=== PATIENT | male | born 1965 ===

== ENCOUNTER 2017-04-14 17:31 | Emergency (ER) | payer MEDICAID ==
[2017-04-14 17:32] VITALS: BMI 28.1
[2017-04-14 17:49] VITALS: RESP 16; TEMP 98.5
--- NOTE | 2017-04-14 18:13 | ED PDOC ---
Lower Extremity Pain/Injury Time Seen by Provider: 04/14/17 17:56 Chief Complaint (Nursing): Lower Extremity Problem/Injury Chief Complaint (Provider): Left knee pain History Per: Patient History/Exam Limitations: no limitations Onset/Duration Of Symptoms: Days (x4 days) Current Symptoms Are (Timing): Still Present Additional Complaint(s): 51 year old male with a past medical history of arthritis who presents to the emergency department for an evaluation of the left knee x4 days. Reports pain has been worsening since onset and associated with diffuse swelling. Patient had total knee replacement completed last year by Dr. Joya in [facility]. Reports he has been resting using both ice and warm packs with nonsteroidal anti-inflammatory drugs (NSAIDs) with minimal relief. Denies trauma , injury, fever, chills, numbness, or weakness. Of note, patient worked his first shift at his job a week ago since having the surgery to the left knee a year ago and is required to be on his feet for 10 hours. He noticed swelling to be similar to the swelling he had prior to having the surgery. Surgery was done due to severe arthritis of the left knee. PMD: [facility] (Simon Larios) Past Medical History Reviewed: Historical Data, Nursing Documentation, Vital Signs Vital Signs: Last Vital Signs Temp 98.5 F 04/14/17 17:46 Pulse 102 H 04/14/17 17:46 Resp 16 04/14/17 17:46 BP 125/80 04/14/17 17:46 Pulse Ox 99 04/14/17 17:46 - Medical History PMH: Arthritis - Surgical History Other surgeries: left knee prosthesis - Family History Family History: States: Diabetes Other Family History: Cardiac disease - Social History Current smoker - smoking cessation education provided: No Alcohol: None Drugs: Denies - Immunization History Hx Tetanus Toxoid Vaccination: No Hx Influenza Vaccination: No Hx Pneumococcal Vaccination: No - Home Medications Home Medications: Ambulatory Orders Medication Instructions Recorded Ibuprofen [Motrin Tab] 800 mg PO QID #20 tab 04/10/17 Lidocaine 5% [Lidoderm] 1 ea TD DAILY PRN #20 patch 04/14/17 traMADol [Ultram] 50 mg PO TID PRN #15 tab 04/14/17 - Allergies Allergies/Adverse Reactions: Allergies Allergy/AdvReac Type Severity Reaction Status Date / Time No Known Allergies Allergy Verified 04/14/17 17:46 Review of Systems ROS Statement: Except As Marked, All Systems Reviewed And Found Negative (As per HPI) Constitutional: Negative for: Fever, Chills, Other (Trauma or injury) Musculoskeletal: Positive for: Other (Left knee pain with swelling) Neurological: Negative for: Weakness, Numbness Physical Exam - Reviewed Nursing Documentation Reviewed: Yes Vital Signs Reviewed: Yes - Physical Exam Appears: Positive for: Non-toxic, In Acute Distress Head Exam: Positive for: ATRAUMATIC, NORMOCEPHALIC Skin: Positive for: Warm, Dry Extremity: Positive for: Other (LEFT knee: diffuse fluctuant edema, no deformity , no laxity, KE/KF 5/5 strength, neurovascularly intact distally) Lymphatic: Negative for: Adenopathy Neurologic/Psych: Positive for: Alert. Negative for: Motor/Sensory Deficits - ECG O2 Sat by Pulse Oximetry: 99 (RA) Pulse Ox Interpretation: Normal Medical Decision Making Medical Decision Making: Time: 1803 Initial impression: Knee effusion differential include knee sprain, arthritis, and fracture Initial plan: --Left knee x-ray --Reevaluation Time: 1836 --Left knee x-ray FINDINGS: BONES: There is no acute displaced fracture or bone destruction. Bone alignment is normal. JOINTS: Status post total cemented knee arthroplasty. No evidence of loosening or hardware complications. JOINT EFFUSION: There is a moderate suprapatellar joint effusion. OTHER FINDINGS: None. IMPRESSION: No acute displaced fracture or dislocation. Moderate suprapatellar joint effusion. Time: 0 Upon provider reevaluation patient is medically stable, and requires no further treatment in the ED at this time. Patient will be discharged home with Rx for Lidocaine 5% and Tramadol 50 mg. Counseling was provided and all questions were answered regarding diagnosis and need for follow up with Dr. Familia Odonnell MD. There is agreement to discharge plan. Return if symptoms persist or worsen. Clinical Impression: Knee effusion and knee pain Scribe Attestation: Documented by Stacia Trammell, acting as a scribe for Leah Powell MD. Provider Scribe Attestation: All medical record entries made by the Scribe were at my direction and personally dictated by me. I have reviewed the chart and agree that the record accurately reflects my personal performance of the history, physical exam, medical decision making, and the department course for this patient. I have also personally directed, reviewed, and agree with the discharge instructions and disposition. Disposition - Clinical Impression Clinical Impression: Knee effusion, Knee pain - Patient ED Disposition Is Patient to be Admitted: No - Disposition Referrals: Familia Odonnell MD [Staff Provider] - 04/15/17 (CALL TOMORROW MORNING TO SETUP URGENT APPOINTMENT WITH WHOEVER IS AVAILABLE AT [facility]. PLEASE TRY TO FOLLOW UP BY THE END OF THE WEEK.) Disposition: Routine/Home Disposition Time: 19:00 Condition: STABLE Additional Instructions: USE CRUTCHES AND KNEE IMMOBILIZER UNTIL YOU SEE THE ORTHOPEDIST. DO NOT BEAR ANY WEIGHT ON THE KNEE. CONTINUE TO ICE KNEE AND TAKE ALLEVE. Prescriptions: Lidocaine 5% [Lidoderm] 1 ea TD DAILY PRN #20 patch PRN Reason: PAIN traMADol [Ultram] 50 mg PO TID PRN #15 tab PRN Reason: SEVERE PAIN ONLY Instructions: Crutch Instructions (ED), Swollen Knee Joint (ED), Knee Immobilizer (ED) Forms: [facility] ED School/Work Excuse
--- NOTE | 2017-04-14 18:59 | RAD ---
PROCEDURE: Left Knee Radiographs. HISTORY: Pain. COMPARISON: None. FINDINGS: BONES: There is no acute displaced fracture or bone destruction. Bone alignment is normal. JOINTS: Status post total cemented knee arthroplasty. No evidence of loosening or hardware complications. JOINT EFFUSION: There is a moderate suprapatellar joint effusion. OTHER FINDINGS: None. IMPRESSION: No acute displaced fracture or dislocation. Moderate suprapatellar joint effusion.
[2017-04-14 19:21] VITALS: BP 128/72; PULSE 72
[2017-04-14 23:53] VITALS: O2SAT 99
== END 2017-04-14 19:21 | disposition short-term general hospital (02) ==
LOC: H.ER 17:31
DX: M25.462 Effusion, left knee (principal)
CPT/HCPCS: 29530; 73562; 99284; L1830

== ENCOUNTER 2017-05-15 09:58 | Emergency (ER) | payer MEDICAID ==
[2017-05-15 09:59] VITALS: BMI 28.1
[2017-05-15 10:20] VITALS: BP 127/80; PULSE 79; RESP 20; TEMP 98.3; O2SAT 98
--- NOTE | 2017-05-15 11:03 | ED PDOC ---
Lower Extremity Pain/Injury Time Seen by Provider: 05/15/17 11:01 Chief Complaint (Nursing): Lower Extremity Problem/Injury Chief Complaint (Provider): left knee pain History Per: Patient (51 y/o male h/o left knee sx 14 months ago here for knee swelling x 2 weeks. Denies any fevers/chills. Has been seen at [facility] with xrys wnl. Seen by his ortho facility last week and given f/u appt with his surgeon 05/20/2017. Patient anxious and would like knee swelling investigated earlier.) Past Medical History Reviewed: Historical Data, Nursing Documentation, Vital Signs Vital Signs: Last Vital Signs Temp 98.3 F 05/15/17 10:19 Pulse 79 05/15/17 10:19 Resp 20 05/15/17 10:19 BP 127/80 05/15/17 10:19 Pulse Ox 98 05/15/17 10:19 - Medical History PMH: Arthritis - Family History Family History: States: Unknown Family Hx, Diabetes - Immunization History Hx Tetanus Toxoid Vaccination: No Hx Influenza Vaccination: No Hx Pneumococcal Vaccination: No - Home Medications Home Medications: Ambulatory Orders Medication Instructions Recorded Ibuprofen [Motrin Tab] 800 mg PO QID #20 tab 04/10/17 Lidocaine 5% [Lidoderm] 1 ea TD DAILY PRN #20 patch 04/14/17 traMADol [Ultram] 50 mg PO TID PRN #15 tab 04/14/17 Naproxen 1 tab PO Q12 PRN #14 tab 05/15/17 traMADol [Ultram] 50 mg PO BID PRN #8 tab 05/15/17 - Allergies Allergies/Adverse Reactions: Allergies Allergy/AdvReac Type Severity Reaction Status Date / Time No Known Allergies Allergy Verified 05/15/17 10:41 Review of Systems ROS Statement: Except As Marked, All Systems Reviewed And Found Negative Musculoskeletal: Positive for: Other (knee swelling) Physical Exam - Reviewed Nursing Documentation Reviewed: Yes Vital Signs Reviewed: Yes - Physical Exam Appears: Positive for: Well, Non-toxic, No Acute Distress Head Exam: Positive for: ATRAUMATIC, NORMAL INSPECTION, NORMOCEPHALIC Skin: Positive for: Normal Color, Warm, DRY Eye Exam: Positive for: EOMI, Normal appearance, PERRL ENT: Positive for: Normal ENT Inspection Neck: Positive for: Normal, Painless ROM Cardiovascular/Chest: Positive for: Regular Rate, Rhythm Respiratory: Positive for: CNT, Normal Breath Sounds Gastrointestinal/Abdominal: Positive for: Normal Exam, Bowel Sounds, Soft Back: Positive for: Normal Inspection Extremity: Positive for: Normal ROM, Other (knee effusion noted left knee. No obvious erythema) Neurologic/Psych: Positive for: Alert, Oriented - ECG O2 Sat by Pulse Oximetry: 98 - Progress ED Course And Treament: d/w Serina UREÑA at [facility]. States patient's knee should not be tapped at this time and office will call him to arrange for earlier appointment today. Disposition - Clinical Impression Clinical Impression: Knee pain - Patient ED Disposition Is Patient to be Admitted: No - Disposition Disposition: Routine/Home Disposition Time: 11:21 Condition: FAIR Prescriptions: Naproxen 1 tab PO Q12 PRN #14 tab PRN Reason: Pain, Moderate (4-7) traMADol [Ultram] 50 mg PO BID PRN #8 tab PRN Reason: Pain, Moderate (4-7) Instructions: Knee Pain (ED) Forms: [facility] [facility] [facility] (Malay), [facility] ED School/Work Excuse
== END 2017-05-15 11:37 | disposition home or self-care (01) ==
LOC: H.ER 09:58
DX: M25.562 Pain in left knee (principal)